=== PATIENT | male | born 1990 | race Caucasian/White ===

== ENCOUNTER 2020-09-04 16:45 | Emergency (ER) | payer BC ==
[2020-09-04] MEDS ORDERED: CLINDAMYCIN HCL 150 MG CAPSULE (FP) PO ONE (17:07)
[2020-09-04 17:08] VITALS: BP 151/101; PULSE 72; TEMP 97.7; BMI 32.3
[2020-09-04] MEDS ORDERED: CLINDAMYCIN HCL 150 MG CAPSULE (FP) ONE ×2 (17:22→17:23)
[2020-09-04] MEDS ORDERED: CLINDAMYCIN PHOSPHATE 300 MG/2 ML VIAL ONE (17:22)
== END 2020-09-04 19:04 | disposition home or self-care (01) ==
LOC: FER 16:45
DX: K02.9 Dental caries, unspecified (principal); K12.2 Cellulitis and abscess of mouth
CPT/HCPCS: 99283-25

== ENCOUNTER 2022-08-21 11:05 | Emergency (ER) | payer OTHER, BC ==
[2022-08-21 11:18] VITALS: TEMP 98.3; BMI 34.2
[2022-08-21] MEDS ORDERED: FAMOTIDINE 20 MG/50 ML IVPB 20 MG/50 ML MG IVPB ONE ×2 (11:22→11:27)
[2022-08-21] MEDS ORDERED: methylPREDNISolone NA SUCC 125 MG/2 ML VIAL IVPUSH ONE (11:22)
[2022-08-21] MEDS ORDERED: methylPREDNISolone NA SUCC 125 MG/2 ML VIAL ONE (11:26)
[2022-08-21 13:17] VITALS: BP 126/70; PULSE 60; RESP 16
== END 2022-08-21 13:39 | disposition home or self-care (01) ==
LOC: FER 11:05
PROC: 3E033GC Introduction of Other Therapeutic Substance into Peripheral Vein, Percutaneous Approach (ICD-10-PCS; principal; 2022-08-21)
PROC: 3E033GC Introduction of Other Therapeutic Substance into Peripheral Vein, Percutaneous Approach (ICD-10-PCS; 2022-08-21)
PROC: 3E033GC Introduction of Other Therapeutic Substance into Peripheral Vein, Percutaneous Approach (ICD-10-PCS; 2022-08-21)
DX: R22.0 Localized swelling, mass and lump, head (principal); T78.40XA Allergy, unspecified, initial encounter
CPT/HCPCS: 99284-25